=== PATIENT | male | born 1980 | race Caucasian/White ===

== ENCOUNTER 2020-11-03 11:36 | Emergency (ER) | payer OTHER ==
[2020-11-03 11:50] VITALS: BP 110/60; PULSE 98; TEMP 97.9; BMI 24.1
[2020-11-03] MEDS ORDERED: METHOCARBAMOL 500 MG TABLET PO ONE (13:16)
[2020-11-03] MEDS ORDERED: ACETAMINOPHEN 500 MG TABLET (FP) PO ONE (13:16)
[2020-11-03] MEDS ORDERED: METHOCARBAMOL 500 MG TABLET ONE (13:21)
[2020-11-03] MEDS ORDERED: ACETAMINOPHEN 500 MG TABLET (FP) ONE (13:21)
== END 2020-11-03 16:26 | disposition home or self-care (01) ==
LOC: JERFT 11:36
PROC: 3E0333Z Introduction of Anti-inflammatory into Peripheral Vein, Percutaneous Approach (ICD-10-PCS; principal; 2020-11-03)
DX: S00.83XA Contusion of other part of head, initial encounter (principal); S00.03XA Contusion of scalp, initial encounter; S10.93XA Contusion of unspecified part of neck, initial encounter; S40.212A Abrasion of left shoulder, initial encounter
CPT/HCPCS: 70450-TC; 70486-TC; 72125-TC; 99285-25